=== PATIENT | female | born 1975 | race Caucasian/White ===

== ENCOUNTER 2018-06-25 11:08 | Day surgery (SDC) | payer OTHER ==
[2018-06-25] MEDS ORDERED: BUPIVACAINE HCL 0.25% MPF 30 ML SOL INFIL ONE (11:34)
[2018-06-25] MEDS: MIDAZOLAM 2 MG/2 ML SOL ONE ×2 (11:48→11:53)
[2018-06-25] MEDS: FENTANYL 100MCG/2ML SOL ONE ×2 (11:48→12:00)
[2018-06-25] MEDS: DEXAMETHASONE SOD PHOS PF 10 MG/ML SOL IJ ONE ×2 (11:57→12:02)
[2018-06-25 12:21] VITALS: RESP 16; O2SAT 99
[2018-06-25 12:24] VITALS: BP 117/82; PULSE 85; TEMP 97.9
== END 2018-06-25 13:22 | disposition home or self-care (01) | DRG 641 ==
LOC: SURG 11:08
PROVIDERS: ATTEND Nurse Anesthetist, Certified Registered
DX: R73.03 Prediabetes (principal); M51.17 Intervertebral disc disorders with radiculopathy, lumbosacral region
CPT/HCPCS: J2250; J3010; J1100

== ENCOUNTER 2018-08-05 13:30 | Day surgery (SDC) | payer OTHER ==
[2018-08-05] MEDS ORDERED: BUPIVACAINE HCL 0.25% MPF 30 ML SOL INFIL ONE (14:15)
[2018-08-05] MEDS: FENTANYL 100MCG/2ML SOL ONE ×4 (14:22→14:42)
[2018-08-05] MEDS: MIDAZOLAM 2 MG/2 ML SOL ONE ×2 (14:22→14:28)
[2018-08-05] MEDS: DEXAMETHASONE SOD PHOS PF 10 MG/ML SOL IJ ONE ×2 (14:28→14:42)
[2018-08-05 14:42] VITALS: PULSE 94
[2018-08-05 14:59] VITALS: RESP 14; TEMP 98.2; O2SAT 96
[2018-08-05 15:13] VITALS: BP 126/78
== END 2018-08-05 15:25 | disposition home or self-care (01) | DRG 552 ==
LOC: SURG 13:30
PROVIDERS: ATTEND Nurse Anesthetist, Certified Registered
DX: M51.17 Intervertebral disc disorders with radiculopathy, lumbosacral region (principal); E11.9 Type 2 diabetes mellitus without complications
CPT/HCPCS: J2250; J3010; J1100

== ENCOUNTER 2018-08-26 12:22 | Day surgery (SDC) | payer OTHER ==
[2018-08-26] MEDS ORDERED: BUPIVACAINE HCL 0.25% MPF 30 ML SOL INFIL ONE (12:55)
[2018-08-26] MEDS ORDERED: TRIAMCINOLONE ACETONIDE 40 MG/ML SUS ONE (12:55)
[2018-08-26] MEDS ORDERED: MIDAZOLAM 2 MG/2 ML SOL ONE (13:12)
[2018-08-26 13:35] VITALS: BP 133/90; PULSE 79; RESP 20; TEMP 97.5; O2SAT 95
== END 2018-08-26 13:50 | disposition home or self-care (01) | DRG 554 ==
LOC: SURG 12:22
PROVIDERS: ATTEND Nurse Anesthetist, Certified Registered
DX: M12.9 Arthropathy, unspecified (principal); E13.9 Other specified diabetes mellitus without complications
CPT/HCPCS: J2250; J3300